=== PATIENT | female | born 1960 | race Caucasian/White ===

== ENCOUNTER 2022-05-12 22:21 | Emergency (ER) | payer OTHER ==
[~2022-05-12] VITALS: Ht 157.5 cm; Wt 86.2 kg
[2022-05-12 22:33] VITALS: BP_SYST 170; BP_SYST 174; BP_DIAS 108; BP_DIAS 93
--- NOTE | 2022-05-12 22:33 | NUR ---
to bed ambulatory
--- NOTE | 2022-05-12 22:35 | NUR ---
Patient resting in bed, A/Ox4, chest rise and fall symmetrical, no c/o pain or s/s of distress.
[2022-05-12 23:40] VITALS: BP 165/86
--- NOTE | 2022-05-12 23:40 | NUR ---
Patient discharged with v/s stable. Written and verbal after care instructions given and explained. Patient verbalized understanding. Ambulatory with steady gait. All questions addressed prior to discharge. Advised to follow up with PMD.
== END 2022-05-12 23:40 | disposition home or self-care (01) ==
LOC: MED 22:21
DX: I10 Essential (primary) hypertension (principal); E11.9 Type 2 diabetes mellitus without complications; E78.5 Hyperlipidemia, unspecified; Z98.890 Other specified postprocedural states; Z88.0 Allergy status to penicillin
CPT/HCPCS: 99281